=== PATIENT | male | born 1940 | race Caucasian/White ===

== ENCOUNTER → 2019-04-05 | Outpatient (CLI) | payer MEDICARE ==
--- NOTE | 2019-04-05 15:19 | XR ---
EXAMINATION TYPE: XR chest 2V DATE OF EXAM: 04/05/2019 COMPARISON: NONE HISTORY: Cough for several years TECHNIQUE: Frontal and lateral views of the chest are obtained. FINDINGS: Right midlung linear probable atelectasis just deep to the right minor fissure. There is n o focal air space opacity, pleural effusion, or pneumothorax seen. Pulmonary hyperinflation with flat tening of the diaphragms indicative of underlying COPD. The cardiac silhouette size is within normal limits. Post CABG changes the chest are noted. The osseous structures are intact. Mild multilevel de generative changes of the thoracic spine. Cholecystectomy clips are seen. IMPRESSION: 1. Underlying COPD. 2. Right midlung linear platelike opacity appears as atelectasis.
== END | disposition home or self-care (01) ==
LOC: RADXRYALE 14:43
PROVIDERS: ATTEND Family Medicine
DX: R05 Cough (principal)
CPT/HCPCS: 71046

== ENCOUNTER → 2020-05-23 | Outpatient (CLI) | payer OTHER, MEDICARE ==
--- NOTE | 2020-05-23 10:38 | XR ---
EXAMINATION TYPE: XR shoulder complete RT DATE OF EXAM: 05/23/2020 CLINICAL HISTORY: pain TECHNIQUE: Three views of the right shoulder are obtained. COMPARISON: None FINDINGS: There is no acute fracture/dislocation evident. The acromioclavicular and glenohumeral rasheed int spaces appear mildly narrowed. The visualized ribs are intact and unremarkable. IMPRESSION: 1. There is no acute fracture or dislocation. ICD 10 NO FRACTURE, INITIAL EVALUATION
== END | disposition home or self-care (01) ==
LOC: RADXRYALE 10:10
PROVIDERS: ATTEND Physician Assistant
DX: M25.511 Pain in right shoulder (principal)

== ENCOUNTER → 2020-12-17 | Outpatient (CLI) | payer MEDICARE ==
--- NOTE | 2020-12-17 11:20 | XR ---
EXAMINATION TYPE: XR chest 2V DATE OF EXAM: 12/17/2020 COMPARISON: 04/05/2019 HISTORY: Preoperative TECHNIQUE: Frontal and lateral views of the chest are obtained. FINDINGS: No significant change in airspace type density in the right lower lung space. Left lung is grossly cl ear. Postoperative changes are seen overlying the cardiomediastinal silhouette. IMPRESSION: No significant change in airspace type density in the right lower lung space. CT could be performed i f clinically warranted.
== END | disposition home or self-care (01) ==
LOC: RADXRYALE 10:54
PROVIDERS: ATTEND Family Medicine
DX: Z01.811 Encounter for preprocedural respiratory examination (principal)
CPT/HCPCS: 71046

== ENCOUNTER 2025-01-11 15:25 | Inpatient (IN) | payer MEDICARE ==
--- NOTE | 2025-01-11 16:08 | ED ---
SOB HPI - General Chief Complaint: Shortness of Breath Stated Complaint: SOB Time Seen by Provider: 01/11/25 15:46 Source: patient, EMS Mode of arrival: EMS Limitations: no limitations - History of Present Illness Initial Comments: 84-year-old male with past medical history of COPD who presents to the emergency department from Dr. Tan office. He went in there today reporting shortness of breath. Vitals were obtained and the patient was saturating 70% on room air. He told staff he thought he was going to . They did place him on oxygen. EMS did provide him with 2 DuoNeb breathing treatments. Patient arrives to our facility and is titrated to 2 L of oxygen. He admits to a productive cough. No chest pain. He does not wear oxygen at home. He does use inhalers for his history of COPD. Denies having a lung doctor. No reported fevers. No sick contacts. No lower extremity swelling. Does admit to a history of cardiac arrest in 1987 with stent placement. No other alleviating, precipitating or modifying factors - Related Data Home Medications Medication Instructions Recorded Confirmed Aspirin EC [Ecotrin Low Dose] 81 mg PO DAILY 01/11/25 01/11/25 Atorvastatin [Lipitor] 40 mg PO DAILY 01/11/25 01/11/25 Cholecalciferol (Vitamin D3) 1,250 mcg PO DIRECTED 01/11/25 01/11/25 [Vitamin D3 (1250 Mcg = 50,000 Iu)] Dicyclomine [Bentyl] 10 mg PO PC-TID 01/11/25 01/11/25 Docusate [Colace] 100 mg PO BID 01/11/25 01/11/25 Famotidine [Pepcid] 20 mg PO BID 01/11/25 01/11/25 Ferrous Sulfate [Iron (65 MG 325 mg PO TID 01/11/25 01/11/25 Elemental)] Fluticasone Propion/Salmeterol 1 puff INHALATION RT-Q12H 01/11/25 01/11/25 [Wixela 250-50 Inhub] Gabapentin [Neurontin] 100 mg PO QID 01/11/25 01/11/25 Magnesium Oxide [Mag-Ox] 400 mg PO DAILY 01/11/25 01/11/25 Tamsulosin [Flomax] 0.4 mg PO DAILY 01/11/25 01/11/25 Trospium Chloride [Sanctura XR] 60 mg PO DAILY 01/11/25 01/11/25 amLODIPine [Norvasc] 10 mg PO DAILY 01/11/25 01/11/25 Previous Rx's Medication Instructions Recorded Azithromycin [Zithromax Tri-Chip (3 500 mg PO DAILY 2 Days #2 tab 01/12/25 tabs)] Cefdinir 300 mg PO Q12HR 4 Days #8 cap 01/12/25 Allergies Allergy/AdvReac Type Severity Reaction Status Date / Time LULÚ Inhibitors Allergy Unknown Verified 01/11/25 19:16 adhesive Allergy Unknown Verified 01/11/25 19:16 cephalexin [From Keflex] Allergy Unknown Verified 01/11/25 19:16 codeine Allergy Unknown Verified 01/11/25 19:16 Latex, Natural Rubber Allergy Rash/Hives Verified 01/11/25 20:01 Review of Systems ROS Statement: Those systems with pertinent positive or pertinent negative responses have been documented in the HPI. ROS Other: All systems not noted in ROS Statement are negative. Past Medical History Past Medical History: COPD, Hypertension History of Any Multi-Drug Resistant Organisms: None Reported Additional Past Surgical History / Comment(s): knee and hip replacement (2021), qaud bypass Past Psychological History: No Psychological Hx Reported Smoking Status: Former smoker Past Alcohol Use History: None Reported Past Drug Use History: None Reported General Exam Limitations: no limitations General appearance: alert, in no apparent distress Head exam: Present: atraumatic, normocephalic, normal inspection Eye exam: Present: normal appearance, PERRL, EOMI. Absent: scleral icterus, con junctival injection, periorbital swelling ENT exam: Present: normal exam, mucous membranes moist Neck exam: Present: normal inspection. Absent: tenderness, meningismus, lymphadenopathy Respiratory exam: Present: wheezes, decreased breath sounds. Absent: respiratory distress, rhonchi, stridor Cardiovascular Exam: Present: regular rate, normal rhythm, normal heart sounds. Absent: systolic murmur, diastolic murmur, rubs, gallop, clicks GI/Abdominal exam: Present: soft, normal bowel sounds. Absent: distended, tenderness, guarding, rebound, rigid Extremities exam: Present: normal inspection, full ROM, normal capillary refill. Absent: tenderness, pedal edema, joint swelling, calf tenderness Back exam: Present: normal inspection Neurological exam: Present: alert, oriented X3, CN II-XII intact Psychiatric exam: Present: normal affect, normal mood Skin exam: Present: warm, dry, intact, normal color. Absent: rash Course Vital Signs 01/11/25 01/11/25 01/11/25 15:28 16:12 16:14 Temperature 97.6 F Pulse Rate 93 94 Respiratory 21 19 19 Rate Blood Pressure 96/54 120/65 O2 Sat by Pulse 92 L 90 L Oximetry 01/11/25 01/11/25 01/11/25 17:42 18:06 19:24 Temperature Pulse Rate 86 87 86 Respiratory 20 19 18 Rate Blood Pressure 112/72 122/75 119/71 O2 Sat by Pulse 94 L 91 L 94 L Oximetry 01/11/25 20:55 Temperature Pulse Rate 84 Respiratory 18 Rate Blood Pressure 132/75 O2 Sat by Pulse 95 Oximetry Medical Decision Making - Medical Decision Making Was pt. sent in by a medical professional or institution (, PA, GAS DISTRIBUTION AND EMERGENCY CLERK, urgent care, hospital, or halfway...) When possible be specific @ -Patient was sent in from his primary care office Did you speak to anyone other than the patient for history (EMS, parent, family, police, friend...)? What history was obtained from this source @ -I spoke with EMS and for history Did you review nursing and triage notes (agree or disagree)? Why? @ -I reviewed and agree with nursing and triage notes Were old charts reviewed (outside hosp., previous admission, EMS record, old EKG, old radiological studies, urgent care reports/EKG's, halfway records)? Report findings @ -No old charts were reviewed Differential Diagnosis (chest pain, altered mental status, abdominal pain women, abdominal pain men, vaginal bleeding, weakness, fever, dyspnea, syncope, headache, dizziness, GI bleed, back pain, seizure, CVA, palpatations, mental health, musculoskeletal)? @ -Differential Dyspnea: Coronary syndrome, arrhythmia, tamponade, asthma, COPD, pulmonary embolism, pneumonia, pneumothorax, pulmonary effusion, anaphylaxis, diabetic ketoacidosis, flailed chest, pulmonary contusion, diaphragmatic rupture, anemia, neuromuscular, this is not meant to be an all-inclusive list. EKG interpreted by me (3pts min.). @ -Yes which demonstrates sinus rhythm with a rate of 92. MA interval 169. QRS 129. QTc of 430. No acute ST segment elevations or depressions. Right bundle branch block X-rays interpreted by me (1pt min.). @ -Yes which demonstrates possible pneumonia CT interpreted by me (1pt min.). @ -None done U/S interpreted by me (1pt. min.). @ -None done What testing was considered but not performed or refused? (CT, X-rays, U/S, labs)? Why? @ -None What meds were considered but not given or refused? Why? @ -None Did you discuss the management of the patient with other professionals (professionals i.e. , PA, GAS DISTRIBUTION AND EMERGENCY CLERK, lab, RT, psych nurse, social work nurse, health physics technician, teacher, employment security officer, patient case coordinator)? Give summary @ -Spoke with Dr. Art for admission Was smoking cessation discussed for >3mins.? @ -No Was critical care preformed (if so, how long)? @ -No Were there social determinants of health that impacted care today? How? (Homelessness, low income, unemployed, alcoholism, drug addiction, transportation, low edu. Level, literacy, decrease access to med. care, senior care, rehab)? @ -No Was there de-escalation of care discussed even if they declined (Discuss DNR or withdrawal of care, Hospice)? DNR status @ -No What co-morbidities impacted this encounter? (DM, HTN, Smoking, COPD, CAD, Cancer, CVA, ARF, Chemo, Hep., AIDS, mental health diagnosis, sleep apnea, morbid obesity)? @ -COPD Was patient admitted / discharged? Hospital course, mention meds given and route, prescriptions, significant lab abnormalities, going to OR and other pertinent info. @ -Upon arrival patient seen and evaluated in bed hallway 22. Thorough history and physical exam was performed. IV access was established. Laboratory studies are conducted. Chest x-ray was performed which demonstrates pneumonia. Patient initiated on Rocephin and azithromycin. Breathing treatments will be completed every 4 hours. He is also given a dose of Solu-Medrol. Patient will be admitted to Dr. Art Undiagnosed new problem with uncertain prognosis? @ -No Drug Therapy requiring intensive monitoring for toxicity (Heparin, Nitro, Insulin, Cardizem)? @ -No Were any procedures done? @ -No Diagnosis/symptom? @ -Acute hypoxic respiratory failure, acute exacerbation of COPD, community- acquired pneumonia Acute, or Chronic, or Acute on Chronic? @ -Acute Uncomplicated (without systemic symptoms) or Complicated (systemic symptoms)? @ -Complicated Side effects of treatment? @ -No Exacerbation, Progression, or Severe Exacerbation? @ -Yes Poses a threat to life or bodily function? How? (Chest pain, [place], GA, pneumonia, PE, COPD, DKA, ARF, appy, cholecystitis, CVA, Diverticulitis, Homicidal, Suicidal, threat to staff... and all critical care pts) @ -Yes as patient is hypoxic - Lab Data Result diagrams: 01/12/25 02:25 01/12/25 02:25 Lab Results 01/11/25 01/11/25 01/11/25 Range/Units 17:11 17:11 17:11 WBC 6.15 (4.50-10.00) 10*3/uL RBC 4.25 L (4.40-5.60) 10*6/uL Hgb 12.9 L (13.0-17.0) g/dL Hct 38.9 L (39.6-50.0) % MCV 91.5 (80.0-97.0) fL MCH 30.4 (27.0-32.0) pg MCHC 33.2 (32.0-37.0) g/dL Plt Count 162 (140-440) 10*3/uL MPV 10.7 (9.5-12.2) fL Immature Gran % (Auto) 0.5 % Neutrophils % 87.6 % Lymphocytes % 6.2 % Monocytes % 3.9 % Eosinophils % 1.1 % Basophils % 0.7 % Immature Gran # 0.03 (0.00-0.04) 10*3/uL Neutrophils # 5.39 (1.80-7.70) 10*3/uL Lymphocytes # 0.38 L (0.90-5.00) 10*3/uL Monocytes # 0.24 (0.20-1.00) 10*3/uL Eosinophils # 0.07 (0.04-0.35) 10*3/uL Basophils # 0.04 (0.00-0.10) 10*3/uL PT 11.8 (10.0-12.5) sec INR 1.1 (<1.2) APTT 22.9 (22.0-30.0) sec Sodium 140 (137-145) mmol/L Potassium 4.8 (3.5-5.1) mmol/L Chloride 109 H (98-107) mmol/L Carbon Dioxide 19 L (22-30) mmol/L Anion Gap 12 mmol/L BUN 68 H (9-20) mg/dL Creatinine 2.37 H (0.66-1.25) mg/dL Est GFR (CKD-EPI)AfAm 28 (>60 ml/min/1.73 sqM) Est GFR (CKD-EPI)NonAf 24 (>60 ml/min/1.73 sqM) Glucose 132 H (74-99) mg/dL Plasma Lactic Acid Aba (0.7-2.0) mmol/L Calcium 8.8 (8.4-10.2) mg/dL Total Bilirubin 0.5 (0.2-1.3) mg/dL AST 19 (17-59) U/L ALT 11 (4-49) U/L Alkaline Phosphatase 72 (38-126) U/L Troponin I (0.000-0.034) ng/mL NT-Pro-B Natriuret Pep 1590 pg/mL Total Protein 6.6 (6.3-8.2) g/dL Albumin 3.5 (3.5-5.0) g/dL 01/11/25 01/11/25 Range/Units 17:11 17:11 WBC (4.50-10.00) 10*3/uL RBC (4.40-5.60) 10*6/uL Hgb (13.0-17.0) g/dL Hct (39.6-50.0) % MCV (80.0-97.0) fL MCH (27.0-32.0) pg MCHC (32.0-37.0) g/dL Plt Count (140-440) 10*3/uL MPV (9.5-12.2) fL Immature Gran % (Auto) % Neutrophils % % Lymphocytes % % Monocytes % % Eosinophils % % Basophils % % Immature Gran # (0.00-0.04) 10*3/uL Neutrophils # (1.80-7.70) 10*3/uL Lymphocytes # (0.90-5.00) 10*3/uL Monocytes # (0.20-1.00) 10*3/uL Eosinophils # (0.04-0.35) 10*3/uL Basophils # (0.00-0.10) 10*3/uL PT (10.0-12.5) sec INR (<1.2) APTT (22.0-30.0) sec Sodium (137-145) mmol/L Potassium (3.5-5.1) mmol/L Chloride (98-107) mmol/L Carbon Dioxide (22-30) mmol/L Anion Gap mmol/L BUN (9-20) mg/dL Creatinine (0.66-1.25) mg/dL Est GFR (CKD-EPI)AfAm (>60 ml/min/1.73 sqM) Est GFR (CKD-EPI)NonAf (>60 ml/min/1.73 sqM) Glucose (74-99) mg/dL Plasma Lactic Acid Aba 1.7 (0.7-2.0) mmol/L Calcium (8.4-10.2) mg/dL Total Bilirubin (0.2-1.3) mg/dL AST (17-59) U/L ALT (4-49) U/L Alkaline Phosphatase (38-126) U/L Troponin I 0.019 (0.000-0.034) ng/mL NT-Pro-B Natriuret Pep pg/mL Total Protein (6.3-8.2) g/dL Albumin (3.5-5.0) g/dL Disposition Clinical Impression: Acute exacerbation of chronic obstructive pulmonary disease, Community acquired pneumonia, Hypoxia Disposition: ADMITTED IP TO THIS HOSP Condition: Stable Is patient prescribed a controlled substance at d/c from ED?: No Time of Disposition: 18:38 Decision to Admit Reason: Admit from EC Decision Date: 01/11/25 Decision Time: 18:38
[2025-01-11 17:22] LABS: Basophils # (A) 0.04 10*3/uL (0.00-0.10); Basophils % (A) 0.7 %; Eosinophils # (A) 0.07 10*3/uL (0.04-0.35); Eosinophils % (A) 1.1 %; HCT 38.9 % (39.6-50.0); HGB 12.9 g/dL (13.0-17.0); Lymphocytes # (A) 0.38 10*3/uL (0.90-5.00); Lymphocytes % (A) 6.2 %; MCH 30.4 pg (27.0-32.0); MCHC 33.2 g/dL (32.0-37.0); MCV 91.5 fL (80.0-97.0); Monocytes # (A) 0.24 10*3/uL (0.20-1.00); Monocytes % (A) 3.9 %; Neutrophils # (A) 5.39 10*3/uL (1.80-7.70); Neutrophils % (A) 87.6 %; Platelet Count 162 10*3/uL (140-440); RBC 4.25 10*6/uL (4.40-5.60); RDW 14.2 % (11.5-14.5); WBC 6.15 10*3/uL (4.50-10.00)
[2025-01-11 17:27] LABS: Potassium 4.8 mmol/L (3.5-5.1)
[2025-01-11 17:28] LABS: ALT 11 U/L (4-49); AST 19 U/L (17-59); African American GFR (CKD) 28 (>60 ml/min/1.73 sqM); Albumin 3.5 g/dL (3.5-5.0); Alkaline Phosphatase 72 U/L (38-126); Anion Gap 12 mmol/L; Blood Urea Nitrogen 68 mg/dL (9-20); Calcium 8.8 mg/dL (8.4-10.2); Carbon Dioxide 19 mmol/L (22-30); Chloride 109 mmol/L (98-107); Glucose 132 mg/dL (74-99); Non-African American GFR(CKD) 24 (>60 ml/min/1.73 sqM); Sodium 140 mmol/L (137-145); Total Protein 6.6 g/dL (6.3-8.2)
[2025-01-11 17:29] LABS: INR 1.1 (<1.2); Partial Thromboplastin Time 22.9 sec (22.0-30.0); Prothrombin Time 11.8 sec (10.0-12.5)
[2025-01-11 17:37] LABS: NT-Pro-B-Type Natriuretic Pept 1590 pg/mL
--- NOTE | 2025-01-11 18:11 | XR ---
EXAMINATION TYPE: XR chest 2V DATE OF EXAM: 01/11/2025 6:02 PM COMPARISON: Chest radiographs from 12/17/2020 CLINICAL INDICATION: Male, 84 years old with history of difficulty breathing; [facility] TECHNIQUE: XR chest 2V Frontal and lateral views of the chest. FINDINGS: Lungs/Pleura: Bibasilar airspace opacities present. There is no evidence of pleural effusion, focal c onsolidation, or pneumothorax. Pulmonary vascularity: Unremarkable. Heart/mediastinum: Cardiomediastinal silhouette is unremarkable. Musculoskeletal: No acute osseous pathology. Midline sternotomy wires are noted. IMPRESSION: 1. No acute cardiopulmonary disease/process. 2. Bibasilar airspace opacities probably for pneumonia. [facility], , 01/11/2025 6:08 PM
[2025-01-11] MEDS ORDERED: PNEUMONIA PROTOCOL UTILIZED 1 EACH MISC PO PRN (18:27)
[2025-01-11] MEDS ORDERED: IPRATROPIUM-ALBUTEROL 3 ML NEB INHALATION PRN (18:27)
[2025-01-11] MEDS: methylPREDNISolone SOD SUCCI 125 MG/2 ML VIAL IV STA (18:46)
[2025-01-11] MEDS: MAGNESIUM SULFATE-D5W PMX 1 GM in DEXTROSE/WATER 1 100ML.BAG IVPB ONE (18:48)
[2025-01-11] MEDS: LEVOFLOXACIN 750MG-D5W PMX 750 MG in DEXTROSE/WATER 1 150ML.BAG IVPB STA (18:56)
[2025-01-11] MEDS: IPRATROPIUM-ALBUTEROL 3 ML NEB INHALATION STA (20:43)
[2025-01-11] MEDS: metroNIDAZOLE-NS PMX 500 MG in SALINE 1 100ML.BAG IVPB SCH (20:57)
[2025-01-11 21:27] LABS: RSV Not Detected (Not Detectd)
--- NOTE | 2025-01-11 23:38 | P.HPIM ---
History of Present Illness H&P Date: 01/11/25 Chief Complaint: shortness of breath Patient is a 84-year-old male with a PMH of : - COPD - Stage IV CKD -CAD s/p bypass x 4 - in 2021 is brought to the emergency by EMS for shortness of breath. Patient stated that he was short of breath today. He never had an episode like this before. He noticed a productive cough that started 3 months ago. The cough is intermittent and usually interferes with his intake of fluid and food. Patient denied using oxygen at home. He stated that he quit smoking since 1987. Patient lives at home with his . Patient is ambulatory with his cane. Patient denied fever, chest pain, shortness of breath, muscle weakness, head ache, change in vision. Imaging: CXR 01/11 1.No acute cardiopulmonary disease process 2.Bibasilar airspace opacities probably for pneumonia Labs: WBC 6.15, Hgb 12.9, HCT 38.9, plt count 162 Glucose 132, Na 140, K4.8, BUN 68, Cr 2.37, GFR 24 Vitals T87, RR 19, BP 122/75, O2 sat 94% NC 1 L ED documentation reviewed. Review of systems: Pertinent positives and negatives as discussed in HPI, a complete review of systems was performed and all other systems are negative. Physical examination: Vital signs reviewed General: non toxic, no distress, appears at stated age, normal weight Derm: no unusual rashes/lesions, warm Head: atraumatic, normocephalic, symmetric Eyes: EOMI, anicteric sclera, pupils equal round reactive to light Cardiovascular: S1S2 reg, no murmur, positive dorsalis pedis pulse bilateral, no edema Lungs: CTA bilateral, no rhonchi, no rales, no accessory muscle use Abdominal: soft, nontender to palpation, no guarding Ext: muscle strength 5 out of 5 in all 4 extremities grossly, no gross muscle atrophy Neuro: CN II-XI grossly intact, no gross focal neuro deficits Psych: Alert, oriented to person, place, and time Assessment/Plan: An 84-year-old male with past medical history of COPD, stage IV CKD, and CAD status post bypass x 4, comes in to the emergency for shortness of breath. #. Acute hypoxic respiratory failure -Chest x-ray concerning for bibasilar pneumonia - Saturating in 90s on 2 L of oxygen - Continue IV ceftriaxone and azithromycin p.o. for 3 days - Bedside swallow evaluation #. Questionable history of COPD - Continue antibiotics - no need for steroids - Outpatient PFT #. ADOLFO vs stage 4 CKD - Creatinine 2.37, GFR 24 - Unknown creatinine baseline, no prior labwork on file -check renal ultrasound, UA and urine albumin #. History of CAD s/p bypass x 4 - Continue home medications DVT prophylaxis: Lovenox 40 mg daily The patient is admitted with an anticipated no more than 2 midnight stay for evaluation of shortness of breath CODE STATUS: Full code Discussed with: Dr. Ellis Anticipated discharge place: Home Kathleen Cain MD PGY-1 IM Dictation was produced using [employer] dictation software. please excuse any grammatical, word or spelling errors. I have seen and evaluated the patient today. Discussed with the resident and agree with the residents finding and plan as documented in the resident's note. Changes highlighted in blue font. Past Medical History Past Medical History: COPD, Hypertension History of Any Multi-Drug Resistant Organisms: None Reported Additional Past Surgical History / Comment(s): knee and hip replacement (2021), qaud bypass (august 2021) Past Anesthesia/Blood Transfusion Reactions: No Reported Reaction Past Psychological History: No Psychological Hx Reported Smoking Status: Former smoker Past Alcohol Use History: None Reported Past Drug Use History: None Reported Medications and Allergies Home Medications Medication Instructions Recorded Confirmed Type Alfuzosin HCl [Alfuzosin HCl ER] 10 mg PO DAILY 01/11/25 01/11/25 History Aspirin EC [Ecotrin Low Dose] 81 mg PO DAILY 01/11/25 01/11/25 History Atorvastatin [Lipitor] 40 mg PO DAILY 01/11/25 01/11/25 History Celecoxib [CeleBREX] 200 mg PO BID 01/11/25 01/11/25 History Cholecalciferol (Vitamin D3) 1,250 mcg PO DIRECTED 01/11/25 01/11/25 History [Vitamin D3 (1250 Mcg = 50,000 Iu)] Dicyclomine [Bentyl] 10 mg PO PC-TID 01/11/25 01/11/25 History Docusate [Colace] 100 mg PO BID 01/11/25 01/11/25 History Famotidine [Pepcid] 20 mg PO BID 01/11/25 01/11/25 History Ferrous Sulfate [Feosol] 325 mg PO TID 01/11/25 01/11/25 History Fluticasone Propion/Salmeterol 1 puff INHALATION RT-Q12H 01/11/25 01/11/25 History [Wixela 250-50 Inhub] Gabapentin [Neurontin] 100 mg PO QID 01/11/25 01/11/25 History Losartan Potassium 100 mg PO DAILY 01/11/25 01/11/25 History Magnesium Oxide [Mag-Ox] 400 mg PO DAILY 01/11/25 01/11/25 History Tamsulosin [Flomax] 0.4 mg PO DAILY 01/11/25 01/11/25 History Trospium Chloride [Sanctura XR] 60 mg PO DAILY 01/11/25 01/11/25 History amLODIPine [Norvasc] 10 mg PO DAILY 01/11/25 01/11/25 History hydrALAZINE HCL 10 mg PO TID 01/11/25 01/11/25 History tiZANidine [Zanaflex] 2 mg PO Q8H 01/11/25 01/11/25 History traMADol HCL 50 mg PO BID 01/11/25 01/11/25 History Allergies Allergy/AdvReac Type Severity Reaction Status Date / Time LULÚ Inhibitors Allergy Unknown Verified 01/11/25 19:16 adhesive Allergy Unknown Verified 01/11/25 19:16 cephalexin [From Keflex] Allergy Unknown Verified 01/11/25 19:16 codeine Allergy Unknown Verified 01/11/25 19:16 Latex, Natural Rubber Allergy Rash/Hives Verified 01/11/25 20:01 Physical Exam Vitals: Vital Signs Temp Pulse Pulse Resp BP BP Pulse Ox 01/11/25 21:48 98.1 F 94 18 123/72 95 01/11/25 20:55 84 18 132/75 95 01/11/25 19:24 86 18 119/71 94 L 01/11/25 18:06 87 19 122/75 91 L 01/11/25 17:42 86 20 112/72 94 L 01/11/25 16:14 19 01/11/25 16:12 94 19 120/65 90 L 01/11/25 15:28 97.6 F 93 21 96/54 92 L Intake and Output 01/11/25 01/11/25 01/12/25 14:59 22:59 06:59 Other: Weight 61.689 kg Results CBC & Chem 7: 01/11/25 17:11 01/11/25 17:11 Labs: Abnormal Lab Results - Last 24 Hours (Table) 01/11/25 01/11/25 Range/Units 17:11 17:11 RBC 4.25 L (4.40-5.60) 10*6/uL Hgb 12.9 L (13.0-17.0) g/dL Hct 38.9 L (39.6-50.0) % Lymphocytes # 0.38 L (0.90-5.00) 10*3/uL Chloride 109 H (98-107) mmol/L Carbon Dioxide 19 L (22-30) mmol/L BUN 68 H (9-20) mg/dL Creatinine 2.37 H (0.66-1.25) mg/dL Glucose 132 H (74-99) mg/dL Thrombosis Risk Factor Assmnt - Choose All That Apply Each Factor Represents 1 point: Abnormal pulmonary function (COPD) Other Risk Factors: Yes Each Risk Factor Represents 3 Points: Age 75 years or older Other congenital or acquired thrombophilia - If yes, enter type in comment: No Thrombosis Risk Factor Assessment Total Risk Factor Score: 4 Thrombosis Risk Factor Assessment Level: Moderate Risk
[2025-01-11 23:40] LABS: Bilirubin,Urine Negative (Negative); Blood,Urine Negative (Negative); Color,Urine Colorless; Glucose,Urine (UA) Negative (Negative); Ketones,Urine Negative (Negative); Leukocyte Esterase,Urine Negative (Negative); Nitrite,Urine Negative (Negative); PH, Urine 5.0 (5.0-8.0); Protein,Urine Negative (Negative); Specific Gravity,Urine 1.017 (1.001-1.035); Urobilinogen,Urine <2.0 mg/dL (<2.0)
[2025-01-12] MEDS: AZITHROMYCIN 500 MG TAB PO SCH (00:14)
[2025-01-12] MEDS: LACTATED RINGERS 1,000 ML IV SCH (00:16)
[2025-01-12 07:16] VITALS: PULSE 68; RESP 16; TEMP 97.4
[2025-01-12 08:05] LABS: Basophils # (A) 0.02 X 10*3/uL (0.00-0.10); Basophils % (A) 0.3 %; Eosinophils # (A) 0 X 10*3/uL (0.04-0.35); Eosinophils % (A) 0 %; HCT 37.4 % (39.6-50.0); HGB 11.9 g/dL (13.0-17.0); Immature Grans, Automated 0.40 %; Lymphocytes # (A) 0.15 X 10*3/uL (0.90-5.00); Lymphocytes % (A) 2.0 %; MCH 29.4 pg (27.0-32.0); MCHC 31.8 g/dL (32.0-37.0); MCV 92.3 FL (80.0-97.0); Monocytes # (A) 0.14 X 10*3/uL (0.20-1.00); Monocytes % (A) 1.9 %; NRBC Per 100 WBC 0 X 10*3/uL (0.00-0.01); Neutrophils # (A) 7.11 X 10*3/uL (1.80-7.70); Neutrophils % (A) 95.4 %; Platelet Count 140 X 10*3/uL (140-440); RBC 4.05 X 10*6/uL (4.40-5.60); RDW 14.2 % (11.5-14.5); WBC 7.45 X 10*3/uL (4.50-10.00)
--- NOTE | 2025-01-12 08:25 | XR ---
EXAMINATION TYPE: XR chest 2V DATE OF EXAM: 01/12/2025 6:53 AM COMPARISON: 01/11/2025 CLINICAL INDICATION: Male, 84 years old with history of pneumonia, , TECHNIQUE: PA and lateral views FINDINGS: Heart normal size. Atherosclerotic arch calcifications. Median sternotomy wires and post-CABG clips. Underlying right greater than left lower lung airspace opacities. IMPRESSION: Ongoing bilateral lower lung pneumonia/airspace disease. [facility], Workstation: [email or web address], 01/12/2025 8:23 AM
[2025-01-12 08:35] LABS: Anion Gap 13.60 mmol/L (4.00-12.00); BUN/Creat Ratio 27.95 Ratio (12.00-20.00); Blood Urea Nitrogen 58.7 mg/dL (9.0-27.0); Calcium 8.7 mg/dL (8.7-10.3); Carbon Dioxide 19.4 mmol/L (21.6-31.8); Chloride 107 mmol/L (96-109); Glucose 194 mg/dL (70-110); Potassium 5.4 mmol/L (3.5-5.5); Sodium 140 mmol/L (135-145)
--- NOTE | 2025-01-12 08:36 | US ---
EXAMINATION TYPE: US renals and bladder DATE OF EXAM: 01/12/2025 COMPARISON: NONE CLINICAL INDICATION: Male, 84 years old with history of ADOLFO TECHNIQUE: Grayscale imaging of the bilateral kidneys and urinary bladder: FINDINGS: EXAM MEASUREMENTS: Right Kidney: 9.1 x 4.7 x 4.6 cm Left Kidney: 10.0 x 4.2 x 4.9 cm Right Kidney: Limited views due to overlying bowel content, No evidence of hydro hydronephrosis. Ther e is a benign cyst at the lateral midpole measuring 3.8 x 3.7 x 3.9 cm Left Kidney: No evidence of hydronephrosis. There are multiple small cysts, largest mid pole= 1.4 x 1 .2 x 1.6 cm Bladder: wnl Bilateral Jets seen: No IMPRESSION: 1. No hydronephrosis. 2. Bilateral renal cortical cysts measuring up to 3.9 cm. [facility], Workstation: [email or web address], 01/12/2025 8:34 AM
[2025-01-12] MEDS ORDERED: ENOXAPARIN 40 MG/0.4 ML SYRINGE SQ SCH (09:00)
[2025-01-12] MEDS: TAMSULOSIN 0.4 MG CAP.ER.24H PO SCH (09:58)
[2025-01-12] MEDS: GABAPENTIN 100 MG CAP PO SCH (09:59)
[2025-01-12] MEDS: ATORVASTATIN 40 MG TAB PO SCH (09:59)
[2025-01-12] MEDS: ASPIRIN 81 MG PO SCH (10:00)
[2025-01-12] MEDS: HEPARIN SODIUM,PORCINE 5,000 UNIT/ML 1 ML VIAL SQ SCH (10:01)
[2025-01-12] MEDS: amLODIPine 10 MG TAB PO SCH (11:17)
[2025-01-12 11:22] VITALS: BP 140/74
--- NOTE | 2025-01-12 11:59 | P.DS ---
Providers Date of admission: 01/11/25 18:35 Expected date of discharge: 01/12/25 Attending physician: Dirk Art [facility] Course: Discharge Diagnosis: Acute hypoxic respiratory failure Community-acquired pneumonia ADOLFO History of hypertension Chronic: Possible history of COPD Stage IV CKD History of CAD status post bypass X4 Hospital Course: is brought to the emergency by EMS for shortness of breath. He never had an episode like this before. He noticed a productive cough that started 3 months ago. The cough is intermittent and usually interferes with his intake of fluid and food. Patient denied using oxygen at home. He stated that he quit smoking since 1987. In the ED, chest x-ray was ordered that showed bibasilar airspace opacities concerning for pneumonia. EKG negative for acute STEMI. Labs drawn showed mild anemia, bicarb of 19.4, elevated creatinine of 2.37 on admission and 2.1 on redraw. repeat chest x-ray showed similar bilateral airspace opacities. the patient was given empiric ceftriaxone and azithromycin, IV fluids, Solu-Medrol, and DuoNebs. He required supplemental oxygen while admitted but was able to be weaned to room air. He was sent home on oral antibiotics to finish off his course. Potentially nephrotoxic home medications (tramadol, tizanidine, losartan, Celebrex, alfuzosin, hydralazine) were held due to patient's elevated creatinine. The patient was discharged home with recommendation to follow-up with his PCP. Patient seen and examined at bedside. Vital signs reviewed and stable. Physical examination: Vital signs reviewed General: non toxic, no distress, appears at stated age, normal weight Derm: no unusual rashes/lesions, warm Head: atraumatic, normocephalic, symmetric Eyes: EOMI, anicteric sclera, pupils equal round reactive to light Cardiovascular: Regular rate and rhythm. Systolic murmur appreciated. No edema to bilateral lower extremities. Lungs: CTA bilateral, no rhonchi, no rales, no accessory muscle use Abdominal: soft, nontender to palpation, no guarding Ext: muscle strength 5 out of 5 in all 4 extremities grossly, no gross muscle atrophy Neuro: CN II-XI grossly intact, no gross focal neuro deficits Psych: Alert, oriented to person, place, and time A total of greater than 30 minutes of time were spent preparing this complex discharge summary. Patient was discharged on 01/12/2025 at 10:17 AM. Romain Patel MD PGY-1 TY Dictation was produced using [employer] dictation software. please excuse any grammatical, word or spelling errors. I have seen and evaluated the patient today. Discussed with the resident and agree with the residents finding and plan as documented in the resident's note. Changes highlighted in blue font. Patient Condition at Discharge: Stable Plan - Discharge Summary Discharge Rx Participant: No New Discharge Prescriptions: New Azithromycin [Zithromax Tri-Chip (3 tabs)] 500 mg PO DAILY 2 Days #2 tab Cefdinir 300 mg PO Q12HR 4 Days #8 cap Continue Ferrous Sulfate [Iron (65 MG Elemental)] 325 mg PO TID Cholecalciferol (Vitamin D3) [Vitamin D3 (1250 Mcg = 50,000 Iu)] 1,250 mcg PO DIRECTED Dicyclomine [Bentyl] 10 mg PO PC-TID Magnesium Oxide [Mag-Ox] 400 mg PO DAILY Famotidine [Pepcid] 20 mg PO BID Trospium Chloride [Sanctura XR] 60 mg PO DAILY Docusate [Colace] 100 mg PO BID Tamsulosin [Flomax] 0.4 mg PO DAILY Aspirin EC [Ecotrin Low Dose] 81 mg PO DAILY amLODIPine [Norvasc] 10 mg PO DAILY Gabapentin [Neurontin] 100 mg PO QID Fluticasone Propion/Salmeterol [Wixela 250-50 Inhub] 1 puff INHALATION RT- Q12H Atorvastatin [Lipitor] 40 mg PO DAILY Discontinued traMADol HCL 50 mg PO BID tiZANidine [Zanaflex] 2 mg PO Q8H Losartan Potassium 100 mg PO DAILY Celecoxib [CeleBREX] 200 mg PO BID Alfuzosin HCl [Alfuzosin HCl ER] 10 mg PO DAILY hydrALAZINE HCL 10 mg PO TID Discharge Medication List Aspirin EC [Ecotrin Low Dose] 81 mg PO DAILY 01/11/25 [History] Atorvastatin [Lipitor] 40 mg PO DAILY 01/11/25 [History] Cholecalciferol (Vitamin D3) [Vitamin D3 (1250 Mcg = 50,000 Iu)] 1,250 mcg PO DIRECTED 01/11/25 [History] Dicyclomine [Bentyl] 10 mg PO PC-TID 01/11/25 [History] Docusate [Colace] 100 mg PO BID 01/11/25 [History] Famotidine [Pepcid] 20 mg PO BID 01/11/25 [History] Ferrous Sulfate [Iron (65 MG Elemental)] 325 mg PO TID 01/11/25 [History] Fluticasone Propion/Salmeterol [Wixela 250-50 Inhub] 1 puff INHALATION RT-Q12H 01/11/25 [History] Gabapentin [Neurontin] 100 mg PO QID 01/11/25 [History] Magnesium Oxide [Mag-Ox] 400 mg PO DAILY 01/11/25 [History] Tamsulosin [Flomax] 0.4 mg PO DAILY 01/11/25 [History] Trospium Chloride [Sanctura XR] 60 mg PO DAILY 01/11/25 [History] amLODIPine [Norvasc] 10 mg PO DAILY 01/11/25 [History] Azithromycin [Zithromax Tri-Chip (3 tabs)] 500 mg PO DAILY 2 Days #2 tab 01/12/25 [Rx] Cefdinir 300 mg PO Q12HR 4 Days #8 cap 01/12/25 [Rx] Follow up Appointment(s)/Referral(s): Residential Home,Health [NON-STAFF] - As Needed Michael Silva DO [Primary Care Provider] - 01/18/25 1:20 pm (in [facility]) Patient Instructions/Handouts: Community Acquired Pneumonia (DC) Activity/Diet/Wound Care/Special Instructions: Discharge medicines at [facility] Please follow up with PCP. Discharge Disposition: HOME SELF-CARE
== END 2025-01-12 16:12 | disposition home or self-care (01) | DRG 193 ==
LOC: EC 15:25 → 4SSUR 18:35
PROVIDERS: ADMIT Student in an Organized Health Care Education/Training Program; ATTEND Student in an Organized Health Care Education/Training Program
DX: J18.9 Pneumonia, unspecified organism (principal); J96.01 Acute respiratory failure with hypoxia; N17.9 Acute kidney failure, unspecified; N18.4 Chronic kidney disease, stage 4 (severe); Z11.52 Encounter for screening for COVID-19; D63.1 Anemia in chronic kidney disease; Z86.74 Personal history of sudden cardiac arrest; J44.0 Chronic obstructive pulmonary disease with (acute) lower respiratory infection; I12.9 Hypertensive chronic kidney disease with stage 1 through stage 4 chronic kidney disease, or unspecified chronic kidney disease; J44.1 Chronic obstructive pulmonary disease with (acute) exacerbation; I25.10 Atherosclerotic heart disease of native coronary artery without angina pectoris; Z79.1 Long term (current) use of non-steroidal anti-inflammatories (NSAID); Z79.82 Long term (current) use of aspirin; Z79.899 Other long term (current) drug therapy; Z87.891 Personal history of nicotine dependence; Z95.1 Presence of aortocoronary bypass graft; Z96.649 Presence of unspecified artificial hip joint; Z88.5 Allergy status to narcotic agent; Z88.8 Allergy status to other drugs, medicaments and biological substances; Z91.048 Other nonmedicinal substance allergy status; Z91.040 Latex allergy status
CPT/HCPCS: 36415; 71046; 76770; 80048; 80053; 81003; 82043; 82570; 83605; 83880; 84484; 85025; 85610; 85730; 87449; 87636; 93005; 96365; 96367; 96368; 96375; 99285